=== PATIENT | male | born 1980 | race Caucasian/White ===

== ENCOUNTER 2020-04-10 11:53 | Inpatient (IN) | payer OTHER ==
--- NOTE | 2020-04-10 12:07 | BHS.RME ---
Substance Use & Tx History - Substance Use History Marijuana/Hashish Substance amount: 5 blunts Frequency of use: Daily Substance route: Smoking Date of Last Use: 04/09/20 Nicotine Substance amount: 12 ciggs Frequency of use: Daily Substance route: Smoking Date of Last Use: 04/10/20 Physical/Psych/Mental Status - Behavior General Behavior: Increased activity (restlessness, agitation) Eye Contact: Normal - Cooperativeness Cooperativeness: Cooperative - Thinking Thought Processes: Tight, Logical, Goal Directed - Physical Health Problems Is patient presently having any pain?: No Does patient presently have any injuries (include location): No Does patient currently have a fever: No Is patient : No CIWA Nausea/Vomitin-No Nausea/No Vomiting Muscle Tremors: 4-Moderate,w/Arms Extend Anxiety: 4-Mod. Anxious/Guarded Agitation: 3 Paroxysmal Sweats: 4-Forehead w/Sweat Beads Orientation: 0-Oriented Tacttile Disturbances: 0-None Auditory Disturbances: 0-None Visual Disturbances: 0-None Headache: 2-Mild CIWA-Ar Total Score: 17
[2020-04-10 13:51] VITALS: BMI 32.3
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
[2020-04-10] MEDS ORDERED: MENTHOL/PHENOL 1 EACH UD MM PRN (14:41)
[2020-04-10] MEDS ORDERED: ACETAMINOPHEN 325 MG TABLET (FP) PO PRN ×2 (14:41)
[2020-04-10] MEDS ORDERED: METHOCARBAMOL 500 MG TABLET PO PRN (14:41)
[2020-04-10] MEDS ORDERED: BISMUTH SUBSALICYLATE 524 MG/30 ML UD PO PRN (14:41)
[2020-04-10] MEDS ORDERED: IBUPROFEN 400 MG TABLET (FP) PO PRN (14:41)
[2020-04-10] MEDS ORDERED: MAGNESIUM HYDROX 2400MG/30ML ORAL SUSPENSION 30 ML CUP PO PRN (14:41)
[2020-04-10] MEDS ORDERED: MAGNESIUM CITRATE 300 ML BOTTLE PO PRN (14:41)
[2020-04-10] MEDS ORDERED: MAG HYDROX/AL HYDROX/SIMETH 30 ML UNIT-DOSE CUP PO PRN (14:41)
[2020-04-10] MEDS ORDERED: chlordiazePOXIDE HCL 25 MG CAPSULE PO PRN (14:44)
[2020-04-10] MEDS ORDERED: ONDANSETRON *ODT* 4 MG TABLET SL ONE (15:00)
[2020-04-10] MEDS: PRENATAL VITAMINS W/ FOLIC ACID TABLET (FP) PO SCH (15:34)
[2020-04-10] MEDS: NICOTINE 7 MG/24 HOURS TOPICAL PATCH TD SCH (15:37)
[2020-04-10] MEDS: NICOTINE POLACRILEX 2 MG GUM BUC PRN ×2 (15:37→22:33)
[2020-04-10] MEDS: chlordiazePOXIDE HCL 25 MG CAPSULE PO SCH ×2 (17:30→22:31)
[2020-04-10] MEDS: hydrOXYzine PAMOATE 25 MG CAPSULE (FP) PO SCH ×2 (17:30→22:30)
[2020-04-10 17:44] LABS: ALBUMIN 3.9 g/dl (3.4-5.0); BILIRUBIN,TOTAL 0.6 mg/dL (0.2-1); BLOOD UREA NITROGEN 11.7 mg/dL (7-18); CALCIUM 9.3 mg/dL (8.5-10.1); CREATININE 0.9 mg/dL (0.55-1.3); POTASSIUM 4.2 mmol/L (3.5-5.1); TOT PROT 7.2 g/dl (6.4-8.2)
[2020-04-10 17:46] LABS: HEMATOCRIT 44.4 % (35.4-49); HEMOGLOBIN 14.6 GM/dL (11.7-16.9); MCH 28.5 pg (25.7-33.7); MEAN CELL VOLUME 86.3 fl (80-96); MEAN PLT VOLUME 8.7 fl (7.5-11.1); PLATELET COUNT 339 K/MM3 (134-434); RBC 5.14 M/mm3 (4.00-5.60); RDW 13.8 % (11.9-15.9); WHITE BLOOD COUNT 11.1 K/mm3 (4.0-10.0)
[2020-04-10] MEDS: MELATONIN 5 MG TABLETS PO SCH (22:30)
[2020-04-10] MEDS: THIAMINE HCL 100 MG TABLET (FP) PO SCH (22:30)
[2020-04-11] MEDS: hydrOXYzine PAMOATE 25 MG CAPSULE (FP) PO SCH ×5 (05:30→22:13)
[2020-04-11] MEDS: chlordiazePOXIDE HCL 25 MG CAPSULE PO SCH ×4 (05:30→22:14)
--- NOTE | 2020-04-11 09:49 | PN ---
S CIWA - CIWA Score Nausea/Vomitin-Mild Nausea/No Vomiting Muscle Tremors: 3 Anxiety: 3 Agitation: 1-Slight > Activity Paroxysmal Sweats: 1-Minimal Palms Moist Orientation: 0-Oriented Tacttile Disturbances: 1-Very Mild Itch/Numbness Auditory Disturbances: 0-None Visual Disturbances: 2-Mild Sensitivity Headache: 0-None Present CIWA-Ar Total Score: 12 BHS Progress Note (SOAP) Subjective: 39 years old male admitted on 04/10/20 for alcohol withdrawal sx management treating with librium detox regiment ate breakfast feeling tired resting in bed limited conversation with staff prefers to stay in bed Objective: 04/11/20 09:49 Vital Signs - 24 hr 04/10/20 04/10/20 04/10/20 13:45 16:51 20:33 Temperature 98.4 F 97.3 F L 96.9 F L Pulse Rate 92 H 89 79 Respiratory 20 18 18 Rate Blood Pressure 122/80 147/94 129/81 O2 Sat by Pulse 100 Oximetry (%) 04/11/20 04/11/20 06:23 09:18 Temperature 97.8 F 97.5 F L Pulse Rate 72 70 Respiratory 18 18 Rate Blood Pressure 100/66 114/81 O2 Sat by Pulse 100 100 Oximetry (%) Laboratory Tests 04/10/20 04/10/20 04/10/20 14:00 14:00 14:00 WBC 11.1 H RBC 5.14 Hgb 14.6 Hct 44.4 MCV 86.3 MCH 28.5 MCHC 33.0 RDW 13.8 Plt Count 339 MPV 8.7 Sodium 139 Potassium 4.2 Chloride 107 Carbon Dioxide 25 Anion Gap 7 L BUN 11.7 Creatinine 0.9 Est GFR (CKD-EPI)AfAm 123.39 Est GFR (CKD-EPI)NonAf 106.46 Random Glucose 93 Calcium 9.3 Total Bilirubin 0.6 AST 22 ALT 30 Alkaline Phosphatase 98 Total Protein 7.2 Albumin 3.9 Syphilis Serology Non-reactive HIV Ag/Ab Combo Qual 04/10/20 14:00 WBC RBC Hgb Hct MCV MCH MCHC RDW Plt Count MPV Sodium Potassium Chloride Carbon Dioxide Anion Gap BUN Creatinine Est GFR (CKD-EPI)AfAm Est GFR (CKD-EPI)NonAf Random Glucose Calcium Total Bilirubin AST ALT Alkaline Phosphatase Total Protein Albumin Syphilis Serology HIV Ag/Ab Combo Qual Negative covid pending 04/11/20 09:49 Assessment: 04/11/20 09:49 alcohol withdrawal Plan: librium regiment
[2020-04-11] MEDS: PRENATAL VITAMINS W/ FOLIC ACID TABLET (FP) PO SCH (10:29)
[2020-04-11] MEDS: NICOTINE 7 MG/24 HOURS TOPICAL PATCH TD SCH (10:31)
[2020-04-11] MEDS: NICOTINE POLACRILEX 2 MG GUM BUC PRN ×2 (10:32→22:50)
--- NOTE | 2020-04-11 13:15 | EKG ---
Test Reason : Blood Pressure : / mmHG Vent. Rate : 065 BPM Atrial Rate : 065 BPM P-R Int : 156 ms QRS Dur : 098 ms QT Int : 404 ms P-R-T Axes : -01 070 045 degrees QTc Int : 420 ms NORMAL SINUS RHYTHM NORMAL ECG NO PREVIOUS ECGS AVAILABLE Confirmed by Tim Ireland ([id number]) on 04/11/2020 1:14:56 PM Referred By: Confirmed By:Tim Ireland
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
[2020-04-11] MEDS: QUEtiapine FUMARATE 100 MG TABLET (FP) PO SCH (22:13)
[2020-04-11] MEDS: THIAMINE HCL 100 MG TABLET (FP) PO SCH (22:13)
[2020-04-11] MEDS: MELATONIN 5 MG TABLETS PO SCH (22:14)
[2020-04-11] MEDS: DIVALPROEX SODIUM 500 MG TABLET E.C. PO SCH (22:14)
[2020-04-12] MEDS: hydrOXYzine PAMOATE 25 MG CAPSULE (FP) PO SCH ×5 (05:52→22:26)
[2020-04-12] MEDS: chlordiazePOXIDE HCL 25 MG CAPSULE PO SCH ×4 (05:52→22:26)
[2020-04-12] MEDS: PRENATAL VITAMINS W/ FOLIC ACID TABLET (FP) PO SCH (10:06)
[2020-04-12] MEDS: NICOTINE 7 MG/24 HOURS TOPICAL PATCH TD SCH (10:06)
[2020-04-12] MEDS: DIVALPROEX SODIUM 500 MG TABLET E.C. PO SCH ×2 (10:06→22:26)
--- NOTE | 2020-04-12 12:32 | PN ---
S CIWA - CIWA Score Nausea/Vomitin-Mild Nausea/No Vomiting Muscle Tremors: 1-None Visible, but [place] Anxiety: 1-Mildly Anxious Agitation: 1-Slight > Activity Paroxysmal Sweats: 1-Minimal Palms Moist Orientation: 0-Oriented Tacttile Disturbances: 1-Very Mild Itch/Numbness Auditory Disturbances: 0-None Visual Disturbances: 1-Very Mild Sensitivity Headache: 1-Very Mild CIWA-Ar Total Score: 8 BHS Progress Note (SOAP) Subjective: 39 years old male admitted on 04/10/20 for alcohol withdrawal sx management treating with librium detox regiment ate breakfast and lunch in room feeling tired resting in bed limited conversation with staff Objective: 04/12/20 12:32 Vital Signs - 24 hr 04/11/20 04/11/20 04/11/20 12:35 16:31 20:36 Temperature 97.5 F L 97.7 F 97.7 F Pulse Rate 62 78 82 Respiratory 16 18 18 Rate Blood Pressure 103/67 124/81 130/86 O2 Sat by Pulse 100 100 100 Oximetry (%) 04/12/20 04/12/20 06:14 08:35 Temperature 97.6 F 97.5 F L Pulse Rate 64 75 Respiratory 18 18 Rate Blood Pressure 106/69 96/66 O2 Sat by Pulse 99 Oximetry (%) Laboratory Tests 04/10/20 04/10/20 04/10/20 14:00 14:00 14:00 WBC 11.1 H RBC 5.14 Hgb 14.6 Hct 44.4 MCV 86.3 MCH 28.5 MCHC 33.0 RDW 13.8 Plt Count 339 MPV 8.7 Sodium 139 Potassium 4.2 Chloride 107 Carbon Dioxide 25 Anion Gap 7 L BUN 11.7 Creatinine 0.9 Est GFR (CKD-EPI)AfAm 123.39 Est GFR (CKD-EPI)NonAf 106.46 Random Glucose 93 Calcium 9.3 Total Bilirubin 0.6 AST 22 ALT 30 Alkaline Phosphatase 98 Total Protein 7.2 Albumin 3.9 Valproic Acid Syphilis Serology Non-reactive HIV Ag/Ab Combo Qual 04/10/20 04/12/20 14:00 07:45 WBC RBC Hgb Hct MCV MCH MCHC RDW Plt Count MPV Sodium Potassium Chloride Carbon Dioxide Anion Gap BUN Creatinine Est GFR (CKD-EPI)AfAm Est GFR (CKD-EPI)NonAf Random Glucose Calcium Total Bilirubin AST co ALT Alkaline Phosphatase Total Protein Albumin Valproic Acid 43.9 L Syphilis Serology HIV Ag/Ab Combo Qual Negative covid pending 04/12/20 12:33 Assessment: 04/12/20 12:33 alcohol withdrawal Plan: librium regiment
[2020-04-12] MEDS ORDERED: MASKS NR ONE (20:08)
[2020-04-12] MEDS: THIAMINE HCL 100 MG TABLET (FP) PO SCH (22:26)
[2020-04-12] MEDS: MELATONIN 5 MG TABLETS PO SCH (22:26)
[2020-04-12] MEDS: QUEtiapine FUMARATE 100 MG TABLET (FP) PO SCH (22:26)
[2020-04-12] MEDS: NICOTINE POLACRILEX 2 MG GUM BUC PRN (23:27)
[2020-04-13] MEDS ORDERED: chlordiazePOXIDE HCL 10 MG CAPSULE PO PRN
[2020-04-13] MEDS: hydrOXYzine PAMOATE 25 MG CAPSULE (FP) PO SCH ×5 (06:00→22:06)
[2020-04-13] MEDS: chlordiazePOXIDE HCL 10 MG CAPSULE PO SCH ×4 (06:00→22:06)
[2020-04-13] MEDS: DIVALPROEX SODIUM 500 MG TABLET E.C. PO SCH ×2 (10:21→22:06)
[2020-04-13] MEDS: PRENATAL VITAMINS W/ FOLIC ACID TABLET (FP) PO SCH (10:21)
[2020-04-13] MEDS: NICOTINE 7 MG/24 HOURS TOPICAL PATCH TD SCH (10:22)
--- NOTE | 2020-04-13 10:46 | PN ---
S CIWA - CIWA Score Nausea/Vomitin-No Nausea/No Vomiting Muscle Tremors: 2 Anxiety: 3 Agitation: 0-Normal Activity Paroxysmal Sweats: 1-Minimal Palms Moist Orientation: 0-Oriented Tacttile Disturbances: 0-None Auditory Disturbances: 0-None Visual Disturbances: 1-Very Mild Sensitivity Headache: 0-None Present CIWA-Ar Total Score: 7 BHS Progress Note (SOAP) Subjective: 39 years old male admitted on 04/10/20 for alcohol withdrawal sx management treating with librium detox regiment seen by psychiatrist resume seroquel and depakote feeling better today good hygiene shaved good eye contact Objective: 04/13/20 10:45 Vital Signs - 24 hr 04/12/20 04/12/20 04/12/20 12:45 16:29 20:46 Temperature 98.6 F 97.7 F 97.7 F Pulse Rate 79 86 100 H Respiratory 20 18 19 Rate Blood Pressure 124/69 136/86 127/84 O2 Sat by Pulse 97 100 Oximetry (%) 04/13/20 04/13/20 06:11 09:08 Temperature 97.7 F 97.5 F L Pulse Rate 89 73 Respiratory 18 18 Rate Blood Pressure 115/80 110/71 O2 Sat by Pulse 99 Oximetry (%) Laboratory Tests 04/10/20 04/10/20 04/10/20 14:00 14:00 14:00 WBC 11.1 H RBC 5.14 Hgb 14.6 Hct 44.4 MCV 86.3 MCH 28.5 MCHC 33.0 RDW 13.8 Plt Count 339 MPV 8.7 Sodium 139 Potassium 4.2 Chloride 107 Carbon Dioxide 25 Anion Gap 7 L BUN 11.7 Creatinine 0.9 Est GFR (CKD-EPI)AfAm 123.39 Est GFR (CKD-EPI)NonAf 106.46 Random Glucose 93 Calcium 9.3 Total Bilirubin 0.6 AST 22 ALT 30 Alkaline Phosphatase 98 Total Protein 7.2 Albumin 3.9 Valproic Acid Syphilis Serology Non-reactive COVID-19 ([facility]) HIV Ag/Ab Combo Qual 04/10/20 04/10/20 04/12/20 14:00 15:33 07:45 WBC RBC Hgb Hct MCV MCH MCHC RDW Plt Count MPV Sodium Potassium Chloride Carbon Dioxide Anion Gap BUN Creatinine Est GFR (CKD-EPI)AfAm Est GFR (CKD-EPI)NonAf Random Glucose Calcium Total Bilirubin AST ALT Alkaline Phosphatase Total Protein Albumin Valproic Acid 43.9 L Syphilis Serology COVID-19 ([facility]) Not detected HIV Ag/Ab Combo Qual Negative lab noted Assessment: 04/13/20 10:46 alcohol withdrawal Plan: librium regiment
[2020-04-13] MEDS: QUEtiapine FUMARATE 100 MG TABLET (FP) PO SCH (22:06)
[2020-04-13] MEDS: THIAMINE HCL 100 MG TABLET (FP) PO SCH (22:06)
[2020-04-13] MEDS: MELATONIN 5 MG TABLETS PO SCH (22:06)
[2020-04-14] MEDS: chlordiazePOXIDE HCL 10 MG CAPSULE PO SCH ×2 (06:08→18:23)
[2020-04-14] MEDS: hydrOXYzine PAMOATE 25 MG CAPSULE (FP) PO SCH ×5 (06:08→22:07)
[2020-04-14] MEDS: PRENATAL VITAMINS W/ FOLIC ACID TABLET (FP) PO SCH (10:54)
[2020-04-14] MEDS: NICOTINE 7 MG/24 HOURS TOPICAL PATCH TD SCH (10:54)
[2020-04-14] MEDS: NICOTINE POLACRILEX 2 MG GUM BUC PRN (10:54)
[2020-04-14] MEDS: DIVALPROEX SODIUM 500 MG TABLET E.C. PO SCH ×2 (10:54→22:07)
--- NOTE | 2020-04-14 11:24 | PN ---
S CIWA - CIWA Score Nausea/Vomitin-No Nausea/No Vomiting Muscle Tremors: None Anxiety: 1-Mildly Anxious Agitation: 0-Normal Activity Paroxysmal Sweats: No Perspiration Orientation: 1-Uncertain about Date Tacttile Disturbances: 0-None Auditory Disturbances: 2-Mild Harshness/Frighten Visual Disturbances: 1-Very Mild Sensitivity Headache: 1-Very Mild CIWA-Ar Total Score: 6 BHS Progress Note (SOAP) Subjective: Patient has no complaint at time of review. Objective: 04/14/20 11:24 Patient is being managed for alcohol detox and schizophrenia. He is lying down calmly and answeing all questions at time of review. Complaint of being cold at time of review and was encouraged to use his bkanket since he is in a shared room and room mates isn't complaining of cold. Assessment: Alcohol withdrawal and schizophrenia on treatment 04/14/20 11:28 Plan: Continue librium, psych meds and other supporting meds as recommended.
[2020-04-14] MEDS: THIAMINE HCL 100 MG TABLET (FP) PO SCH (22:07)
[2020-04-14] MEDS: MELATONIN 5 MG TABLETS PO SCH (22:07)
[2020-04-14] MEDS: QUEtiapine FUMARATE 100 MG TABLET (FP) PO SCH (22:07)
[2020-04-15] MEDS ORDERED: chlordiazePOXIDE HCL 10 MG CAPSULE PO ONE (05:00)
[2020-04-15] MEDS: hydrOXYzine PAMOATE 25 MG CAPSULE (FP) PO SCH ×3 (06:20→14:40)
[2020-04-15] MEDS: DIVALPROEX SODIUM 500 MG TABLET E.C. PO SCH (10:29)
[2020-04-15] MEDS: NICOTINE 7 MG/24 HOURS TOPICAL PATCH TD SCH (10:29)
[2020-04-15] MEDS: PRENATAL VITAMINS W/ FOLIC ACID TABLET (FP) PO SCH (10:29)
[2020-04-15] MEDS: NICOTINE POLACRILEX 2 MG GUM BUC PRN (10:29)
[2020-04-15 14:07] VITALS: BP 132/88; PULSE 97; TEMP 97.3
--- NOTE | 2020-04-15 14:07 | DS ---
[facility] Detox Discharge Summary Admission Date: 04/10/20 Discharge Date: 04/15/20 - History Present History: Alcohol Dependence, Cannabis Dependence, Cocaine Dependence Additional Comments: [facility]. Patient A & O X 3, observed ambulating on Detox Unit unassisted prior to time of discharge. Patient denied current withdrawal / detox symptoms when assessed prior to time of Discharge from Detox Unit. Patient was discharged from Detox Unit to be taken over to Rehab Unit in stable medical condition. Pertinent Past History: Depression, Schizophrenia, Insomnia, Nicotine Dependence. - Physical Exam Results Vital Signs: Vital Signs Temperature 97.7 F 04/15/20 08:59 Pulse Rate 81 04/15/20 08:59 Respiratory Rate 20 04/15/20 08:59 Blood Pressure 114/74 04/15/20 08:59 O2 Sat by Pulse Oximetry (%) 99 04/15/20 08:59 Pertinent Admission Physical Exam Findings: WITHDRAWAL SYMPTOMS. Laboratory Tests 04/10/20 04/10/20 04/10/20 14:00 14:00 14:00 WBC 11.1 H RBC 5.14 Hgb 14.6 Hct 44.4 MCV 86.3 MCH 28.5 MCHC 33.0 RDW 13.8 Plt Count 339 MPV 8.7 Sodium 139 Potassium 4.2 Chloride 107 Carbon Dioxide 25 Anion Gap 7 L BUN 11.7 Creatinine 0.9 Est GFR (CKD-EPI)AfAm 123.39 Est GFR (CKD-EPI)NonAf 106.46 Random Glucose 93 Calcium 9.3 Total Bilirubin 0.6 AST 22 ALT 30 Alkaline Phosphatase 98 Total Protein 7.2 Albumin 3.9 Valproic Acid Syphilis Serology Non-reactive COVID-19 ([facility]) HIV Ag/Ab Combo Qual 04/10/20 04/10/20 04/12/20 14:00 15:33 07:45 WBC RBC Hgb Hct MCV MCH MCHC RDW Plt Count MPV Sodium Potassium Chloride Carbon Dioxide Anion Gap BUN Creatinine Est GFR (CKD-EPI)AfAm Est GFR (CKD-EPI)NonAf Random Glucose Calcium Total Bilirubin AST ALT Alkaline Phosphatase Total Protein Albumin Valproic Acid 43.9 L Syphilis Serology COVID-19 ([facility]) Not detected HIV Ag/Ab Combo Qual Negative Lab Results noted. - Treatment Hospital Course: Detox Protocol Followed, Detoxed Safely, Responded well, Discharged Condition Good, Rehab Referral Accepted Patient has Accepted a Rehab Referral to: [facility] ([place], [place]) - Medication Discharge Medications: Ambulatory Orders Divalproex [Depakote -] 500 mg PO TID 04/10/20 Quetiapine Fumarate [Seroquel -] 200 mg PO HS 04/10/20 traZODone HCL [Trazodone HCl] 150 mg PO HS 04/13/20 - Diagnosis (1) Alcohol dependence Current Visit: Yes Status: Chronic Qualifiers: Substance use status: in withdrawal Complication of substance-induced condition: uncomplicated Qualified Code(s): F10.230 - Alcohol dependence with withdrawal, uncomplicated (2) Cannabis dependence Current Visit: Yes Status: Chronic (3) Cocaine dependence Current Visit: Yes Status: Chronic Qualifiers: Substance use status: in withdrawal Qualified Code(s): F14.23 - Cocaine dependence with withdrawal (4) Insomnia Current Visit: Yes Status: Chronic Qualifiers: Insomnia type: unspecified Qualified Code(s): G47.00 - Insomnia, unspecified (5) Nicotine dependence Current Visit: Yes Status: Chronic Qualifiers: Nicotine product type: cigarettes Substance use status: uncomplicated Qualified Code(s): F17.210 - Nicotine dependence, cigarettes, uncomplicated (6) Non-compliance Current Visit: Yes Status: Chronic (7) Schizophrenia Current Visit: Yes Status: Chronic Qualifiers: Schizophrenia type: unspecified Qualified Code(s): F20.9 - Schizophrenia, unspecified (8) Substance induced mood disorder Current Visit: Yes Status: Chronic - AMA Did Patient Leave Against Medical Advice: No
== END 2020-04-15 17:18 | disposition other institution (70) | DRG 774 ==
LOC: YASAS 11:53 → Y3N 14:21
PROVIDERS: ADMIT Allergy & Immunology; ATTEND Allergy & Immunology
PROC: HZ2ZZZZ Detoxification Services for Substance Abuse Treatment (ICD-10-PCS; principal; 2020-04-10)
DX: F10.230 Alcohol dependence with withdrawal, uncomplicated (principal); F14.20 Cocaine dependence, uncomplicated; F12.20 Cannabis dependence, uncomplicated; F17.210 Nicotine dependence, cigarettes, uncomplicated; F20.9 Schizophrenia, unspecified; F19.24 Other psychoactive substance dependence with psychoactive substance-induced mood disorder; F32.9 Major depressive disorder, single episode, unspecified; G47.00 Insomnia, unspecified; Z91.5 Personal history of self-harm; Z91.19 Patient's noncompliance with other medical treatment and regimen; Z56.0 Unemployment, unspecified; Z59.0 Homelessness
CPT/HCPCS: 36415; 80053; 80164; 85027; 86780; 87389; 93005; 93010; U0003

== ENCOUNTER 2020-04-15 17:22 | Inpatient (IN) | payer OTHER ==
--- NOTE | 2020-04-15 14:14 | HP ---
[facility] Rehab Assess/Revision - Admission History Admitted to Rehab from: [facility] Date of Admission to Rehab: 04/15/2020 - Vital signs Vital Signs: Noted; Stable. - Findings Detox History & Physical reviewed: Yes Concur with findings: Yes Comments/Additional Findings: Patient's Medical / Medication History reviewed prior to Discharge from Detox Unit. Patient was Discharged from Detox unit to be taken over to Rehab unit in stable medical condition. Inpatient Rehab Admission - Rehab Decision to Admit Inpatient rehab admission?: Yes - Initial Determination Are CD services needed?: Yes Free of communicable disease: Yes Not in need of hospitalization: Yes - Rehab Admission Criteria Previous failed treatment: Yes Poor recovery environment: Yes Comorbidities: Yes Lacks judgement: No Patient is meeting Inpatient Rehab admission criteria:: Yes
[~2020-04-15 17:22] MED LIST: ACETAMINOPHEN 325 MG TABLET (FP) PO PRN; LOPERAMIDE HCL 2 MG CAPSULE PO PRN; MAG HYDROX/AL HYDROX/SIMETH 30 ML UNIT-DOSE CUP PO PRN; MAGNESIUM CITRATE 300 ML BOTTLE PO PRN; MAGNESIUM HYDROX 2400MG/30ML ORAL SUSPENSION 30 ML CUP PO PRN; MENTHOL/PHENOL 1 EACH UD MM PRN; NICOTINE POLACRILEX 2 MG GUM BUC PRN; P-EPHED 60MG/TRIPROLIDI 2.5MG TABLET PO PRN; guaiFENesin 200 MG/10 ML 10 ML UNIT-DOSE CUPS PO PRN
[2020-04-15] MEDS: hydrOXYzine PAMOATE 25 MG CAPSULE (FP) PO SCH ×2 (18:28→21:20)
[2020-04-15] MEDS: IBUPROFEN 400 MG TABLET (FP) PO PRN (18:28)
[2020-04-15] MEDS: THIAMINE HCL 100 MG TABLET (FP) PO SCH (21:20)
[2020-04-15] MEDS: MELATONIN 5 MG TABLETS PO SCH (21:20)
[2020-04-16] MEDS: IBUPROFEN 400 MG TABLET (FP) PO PRN (06:02)
[2020-04-16] MEDS: hydrOXYzine PAMOATE 25 MG CAPSULE (FP) PO SCH ×5 (06:02→21:29)
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
[2020-04-16] MEDS: DIVALPROEX SODIUM 500 MG TABLET E.C. PO SCH ×2 (09:54→21:29)
[2020-04-16] MEDS: PRENATAL VITAMINS W/ FOLIC ACID TABLET (FP) PO SCH (09:54)
[2020-04-16] MEDS: NICOTINE 7 MG/24 HOURS TOPICAL PATCH TD SCH (09:57)
[2020-04-16] MEDS ORDERED: PT OWN MED DRAWER 7, Y5N ONE ×2 (17:33→19:11)
[2020-04-16] MEDS: MELATONIN 5 MG TABLETS PO SCH (21:29)
[2020-04-16] MEDS: THIAMINE HCL 100 MG TABLET (FP) PO SCH (21:29)
[2020-04-16] MEDS ORDERED: QUEtiapine FUMARATE 100 MG TABLET (FP) PO SCH (22:00)
[2020-04-17] MEDS: hydrOXYzine PAMOATE 25 MG CAPSULE (FP) PO SCH ×2 (07:08→10:10)
[2020-04-17 07:28] VITALS: BP 125/82; PULSE 76; TEMP 97.3
[2020-04-17] MEDS ORDERED: PT OWN MED DRAWER 7, Y5N ONE (08:51)
[2020-04-17] MEDS: PRENATAL VITAMINS W/ FOLIC ACID TABLET (FP) PO SCH (10:09)
[2020-04-17] MEDS: NICOTINE 7 MG/24 HOURS TOPICAL PATCH TD SCH (10:09)
[2020-04-17] MEDS: DIVALPROEX SODIUM 500 MG TABLET E.C. PO SCH (10:09)
--- NOTE | 2020-04-17 11:27 | PN ---
[facility] Progress Note Note: Patient is scheduled for discharge tomorrow. Scripts for 30 days supply of medications(Seroquel 100 mg/hs, Depakote 500 mg/bid) will be electronically transmittedd to [facility], [address] [place] [id number]
[2020-04-17] MEDS ORDERED: hydrOXYzine PAMOATE 25 MG CAPSULE (FP) PO PRN (12:00)
--- NOTE | 2020-04-17 15:24 | PN ---
[facility] Progress Note Note: Patient informed RN on duty, Misbah, that he has been unable to sleep due to thought about childhood and would like to speak with Psychiatrist. Consult ordered. Vital Signs Temperature 97.3 F L 04/17/20 07:27 Pulse Rate 76 04/17/20 07:27 Respiratory Rate 18 04/17/20 07:27 Blood Pressure 125/82 04/17/20 07:27 O2 Sat by Pulse Oximetry (%) 97 04/17/20 14:02
--- NOTE | 2020-04-17 16:23 | PN ---
Psychiatric Progress Note Vital Signs: Vital Signs Period Temp Pulse Resp BP Sys/Yadav Pulse Ox Last 24 Hr 97.3 F 76 18 125/82 97-98 Date of Session: 04/17/20 Chief Complaint:: " I am hearing voices. I think that I am in a reality show." HPI: Discharged from the detoxification unit on 04/16/[address] for rehabilitation. Patient is a 39 y/o male with schizophrenia. Non- adherent to [facility] care in the community. VIKY issues : alcohol, nicotine. Mr Phillips is anxious, frightened by continuous auditory hallucinations and feelings of derealization (I think that I am in a TV show). ROS: No somatic complaints. Patient is alert and fully oriented. Ambulatory. Current Medications: Active Medications Generic Name Dose Route Start Last Admin Trade Name Freq PRN Reason Stop Dose Admin Acetaminophen 650 mg 04/15/20 14:11 Tylenol - PO Q4H PRN FEVER Al Hydroxide/Mg Hydroxide 30 ml 04/15/20 14:11 Mylanta Oral Suspension - PO Q6H PRN DYSPEPSIA Divalproex Sodium 500 mg 04/16/20 10:00 04/17/20 10:09 Depakote - PO 500 mg BID LEIGH ANN Administration Eucalyptus/Menthol/Phenol/Sorbitol 1 each 04/15/20 14:11 Cepastat Lozenge - MM Q4H PRN SORE THROAT Guaifenesin 10 ml 04/15/20 14:11 Robitussin - PO Q6H PRN COUGH Hydroxyzine Pamoate 25 mg 04/17/20 12:00 Vistaril - PO Q4HWA PRN ANXIETY Ibuprofen 400 mg 04/15/20 14:11 04/16/20 06:02 Motrin - PO 400 mg Q6H PRN Administration Pain Level 4-6 Loperamide HCl 4 mg 04/15/20 14:11 Imodium - PO Q6H PRN DIARRHEA Magnesium Citrate 300 ml 04/15/20 14:11 Citroma - PO Q48H PRN CONSTIPATION Magnesium Hydroxide 30 ml 04/15/20 14:11 04/15/20 21:20 Milk Of Magnesia - PO 30 ml DAILY PRN Administration CONSTIPATION Melatonin 5 mg 04/15/20 22:00 04/16/20 21:29 Melatonin PO 5 mg HS LEIGH ANN Administration Nicotine 7 mg 04/16/20 10:00 04/17/20 10:09 Nicoderm Patch - TD Not Given DAILY LEIGH ANN Nicotine Polacrilex 2 mg 04/15/20 14:11 04/16/20 14:39 Nicorette Gum - BUC 2 mg Q2H PRN Administration NICOTINE REPLACEMENT RX Multivit/Folic Acid/Iron 1 tab 04/16/20 10:00 04/17/20 10:09 Vitamins (Sjr) - PO 1 tab DAILY LEIGH ANN Administration Pseudoephedrine/Triprolidine 1 combo 04/15/20 14:11 Actifed - PO TID PRN NASAL CONGESTION Quetiapine Fumarate 100 mg 04/16/20 22:00 04/16/20 21:29 Seroquel - PO 100 mg HS LEIGH ANN Administration Thiamine HCl 100 mg 04/15/20 22:00 04/16/20 21:29 Vitamin B1 - PO 100 mg HS LEIGH ANN Administration Medication(s) Change(s): Medications : seroquel 100 mg po hs + depakote 500 mg po bid (to be titrated). Current Side Effect: No Lab tests ordered: No Lab tests reviewed: Yes Provider note:: Chart reviewed. Met with the patient, at his request. Mr Rader reports chronic insomnia, auditory hallucinations (voices telling him to do different things such as screaming, running, yelling and hitting people). He also invested in the belief that he is participating in a reality show and he has expressed the concern that he is " losing " his mind. Patient declares that he " does not feel comfortable " on a rehabilitation unit. Patient is acutely psychotic. He needs a higher level of psychiatric care. Site Interpreter contacted the personnel at the [facility] emergency department (psychiatric section). Spoke to TANIKA Lo at [phone]. Case endorsed. Patient will be transported to [facility] ED (at his request) via EMS/[place] [employer]. Discussed with [facility] staff (medical nurse practitioner + staff nurse on duty). Total face to face time:: 60 Mental Status Exam - Mental Status Exam Alert and Oriented to: Time, Place, Person Cognitive Function: Good Patient Appearance: Unkempt, Disheveled Mood: Fearful, Nervous, Withdrawn Affect: Mood Congruent, Blunted Patient Behavior: Fatigued, Cooperative Speech Pattern: Clear Voice Loudness: Normal Thought Process: Disorganized Thought Disorder: Present, Being Controlled (by a computer chip inserted in his brain), Bizarre, Delusional Hallucinations: Auditory, Command Suicidal Ideation: Denies Homicidal Ideation: Denies Insight/Judgement: Poor Sleep: Poorly, Difficulty falling asleep Appetite: Good Gait/Station: Normal Psychiatric Treatment Plan - Problem List (1) Psychosis Comment: .Acutely psychotic. (2) Schizophrenia Qualifiers: Schizophrenia type: unspecified Qualified Code(s): F20.9 - Schizophrenia, unspecified Comment: . (3) Alcohol dependence Qualifiers: Substance use status: in withdrawal Complication of substance-induced condition: uncomplicated Qualified Code(s): F10.230 - Alcohol dependence with withdrawal, uncomplicated Comment: . (4) Nicotine dependence Qualifiers: Nicotine product type: cigarettes Substance use status: uncomplicated Qualified Code(s): F17.210 - Nicotine dependence, cigarettes, uncomplicated Comment: . (5) Insomnia Qualifiers: Insomnia type: unspecified Qualified Code(s): G47.00 - Insomnia, unspecified Comment: .
--- NOTE | 2020-04-17 18:28 | PN ---
[facility] Progress Note Note: Psychiatry Attending's note : Patient started to escalate. Complete disregard for unit rules. " Why isn't the ambulance here yet ? " Left unit on his own. Found by designer/writer. Walking in the corridors. Situation of emergency. Constant Observation initiated. Until emergency transfer to [facility]. Discussed with nurse on duty ([facility]). Discussed with medical attending, Dr Santo (in person).
== END 2020-04-17 18:45 | DRG 772 ==
LOC: YASAS 17:22 → Y3E 17:23
PROVIDERS: ADMIT Allergy & Immunology; ATTEND Allergy & Immunology
PROC: HZ42ZZZ Group Counseling for Substance Abuse Treatment, Cognitive-Behavioral (ICD-10-PCS; principal; 2020-04-15)
DX: F10.20 Alcohol dependence, uncomplicated (principal); F17.210 Nicotine dependence, cigarettes, uncomplicated; F20.9 Schizophrenia, unspecified; F29 Unspecified psychosis not due to a substance or known physiological condition; G47.00 Insomnia, unspecified; Z56.0 Unemployment, unspecified; Z59.0 Homelessness

== ENCOUNTER 2021-03-29 18:27 | Inpatient (IN) | payer OTHER ==
[2021-03-29 20:02] VITALS: BMI 33.5
[2021-03-29] MEDS ORDERED: ONDANSETRON *ODT* 4 MG TABLET SL PRN (20:28)
[2021-03-29] MEDS ORDERED: IBUPROFEN 400 MG TABLET (FP) PO PRN (20:28)
[2021-03-29] MEDS ORDERED: MAGNESIUM CITRATE 300 ML BOTTLE PO PRN (20:28)
[2021-03-29] MEDS ORDERED: NICOTINE POLACRILEX 2 MG GUM BUC PRN (20:28)
[2021-03-29] MEDS ORDERED: MAG HYDROX/AL HYDROX/SIMETH 30 ML UNIT-DOSE CUP PO PRN (20:28)
[2021-03-29] MEDS ORDERED: METHOCARBAMOL 500 MG TABLET PO PRN (20:28)
[2021-03-29] MEDS ORDERED: BISMUTH SUBSALICYLATE 524 MG/30 ML PO PRN (20:28)
[2021-03-29] MEDS ORDERED: MAGNESIUM HYDROX 2400MG/30ML ORAL SUSPENSION 30 ML CUP PO PRN (20:28)
[2021-03-29] MEDS ORDERED: ACETAMINOPHEN 325 MG TABLET (FP) PO PRN ×2 (20:28)
[2021-03-29] MEDS ORDERED: METHADONE HCL 10 MG TABLET (FOR DETOX USE ONLY) PO ONE (20:28)
[2021-03-29] MEDS ORDERED: cloNIDine HCL 0.1 MG TABLET PO PRN (20:28)
[2021-03-29] MEDS ORDERED: MENTHOL/PHENOL 1 EACH UD MM PRN (20:28)
[2021-03-29] MEDS ORDERED: METHADONE HCL 10 MG TABLET (FOR DETOX USE ONLY) ONE (21:40)
[2021-03-29] MEDS ORDERED: MELATONIN 5 MG TABLETS PO SCH (22:00)
[2021-03-29] MEDS ORDERED: THIAMINE HCL 100 MG TABLET (FP) PO SCH (22:00)
[2021-03-30 09:10] VITALS: BP 113/76; PULSE 73; TEMP 96.8
[2021-03-30] MEDS ORDERED: METHADONE HCL 5 MG TABLET (FOR DETOX USE ONLY) ONE (09:27)
[2021-03-30] MEDS ORDERED: METHADONE HCL 10 MG TABLET (FOR DETOX USE ONLY) ONE (09:27)
[2021-03-30] MEDS ORDERED: NICOTINE 21 MG/24 HOURS TOPICAL PATCH TD SCH (10:00)
[2021-03-30] MEDS ORDERED: PRENATAL VITAMINS W/ FOLIC ACID TABLET (FP) PO SCH (10:00)
[2021-03-30] MEDS ORDERED: METHADONE (DETOX) 20 MG, METHADONE (DETOX) 5 MG PO ONE (10:00)
[2021-03-30] MEDS ORDERED: DIVALPROEX SODIUM 500 MG TABLET E.C. PO SCH (10:15)
[2021-03-30 13:08] LABS: HEMATOCRIT 41.1 % (35.4-49); HEMOGLOBIN 13.6 GM/dL (11.7-16.9); MCH 28.2 pg (25.7-33.7); MCHC 33.2 g/dl (32.0-35.9); MEAN CELL VOLUME 85.1 fl (80-96); MEAN PLT VOLUME 7.7 fl (7.5-11.1); PLATELET COUNT 317 10^3/uL (134-434); RBC 4.83 M/mm3 (4.00-5.60); WHITE BLOOD COUNT 8.6 K/mm3 (4.0-10.0)
[2021-03-30 13:39] LABS: ALBUMIN 3.2 g/dl (3.4-5.0); BLOOD UREA NITROGEN 9.4 mg/dL (7-18); CALCIUM 8.9 mg/dL (8.5-10.1)
[2021-03-30 13:42] LABS: CREATININE 0.6 mg/dL (0.55-1.3)
[2021-03-30 13:43] LABS: BILIRUBIN,TOTAL 0.4 mg/dL (0.2-1); TOT PROT 6.4 g/dl (6.4-8.2)
[2021-03-30] MEDS ORDERED: QUEtiapine FUMARATE 200 MG TABLET PO SCH (22:00)
[2021-03-31] MEDS ORDERED: FLUoxetine HCL 20 MG CAPSULE PO SCH (10:00)
[2021-03-31] MEDS ORDERED: METHADONE HCL 10 MG TABLET (FOR DETOX USE ONLY) PO ONE (10:00)
[2021-04-01] MEDS ORDERED: METHADONE (DETOX) 10 MG, METHADONE (DETOX) 5 MG PO ONE (10:00)
[2021-04-02] MEDS ORDERED: METHADONE HCL 10 MG TABLET (FOR DETOX USE ONLY) PO ONE (10:00)
[2021-04-03] MEDS ORDERED: METHADONE HCL 5 MG TABLET (FOR DETOX USE ONLY) PO ONE (06:00)
== END 2021-03-30 12:22 | disposition left against medical advice (07) | DRG 770 ==
LOC: YASAS 18:27 → Y3N 23:14
PROVIDERS: ADMIT Allergy & Immunology; ATTEND Allergy & Immunology
PROC: HZ2ZZZZ Detoxification Services for Substance Abuse Treatment (ICD-10-PCS; principal; 2021-03-29)
DX: F11.23 Opioid dependence with withdrawal (principal); F13.20 Sedative, hypnotic or anxiolytic dependence, uncomplicated; F14.20 Cocaine dependence, uncomplicated; F12.20 Cannabis dependence, uncomplicated; F17.210 Nicotine dependence, cigarettes, uncomplicated; F20.9 Schizophrenia, unspecified; F19.24 Other psychoactive substance dependence with psychoactive substance-induced mood disorder; F29 Unspecified psychosis not due to a substance or known physiological condition; Z62.810 Personal history of physical and sexual abuse in childhood; Z56.0 Unemployment, unspecified; Z59.0 Homelessness
CPT/HCPCS: 36415; 80053; 85027; 86780; 93005; 93010; C9803; U0003; U0005

== ENCOUNTER 2021-06-27 14:27 | Inpatient (IN) | payer OTHER ==
[2021-06-27 15:37] VITALS: BMI 27.1
[2021-06-27] MEDS ORDERED: MAG HYDROX/AL HYDROX/SIMETH 30 ML UNIT-DOSE CUP PO PRN (18:45)
[2021-06-27] MEDS ORDERED: ONDANSETRON *ODT* 4 MG TABLET SL PRN (18:45)
[2021-06-27] MEDS ORDERED: cloNIDine HCL 0.1 MG TABLET PO PRN (18:45)
[2021-06-27] MEDS ORDERED: MAGNESIUM HYDROX 2400MG/30ML ORAL SUSPENSION 30 ML CUP PO PRN (18:45)
[2021-06-27] MEDS ORDERED: METHOCARBAMOL 500 MG TABLET PO PRN (18:45)
[2021-06-27] MEDS ORDERED: ACETAMINOPHEN 325 MG TABLET (FP) PO PRN ×2 (18:45)
[2021-06-27] MEDS ORDERED: NALOXONE (NARCAN) HCL 4 MG/0.1 ML SPRAY NS PRN (18:45)
[2021-06-27] MEDS ORDERED: BISMUTH SUBSALICYLATE 524 MG/30 ML PO PRN (18:45)
[2021-06-27] MEDS ORDERED: MAGNESIUM CITRATE 300 ML BOTTLE PO PRN (18:45)
[2021-06-27] MEDS ORDERED: NICOTINE 10 MG CARTRIDGE (INHALER) IH PRN (18:45)
[2021-06-27] MEDS ORDERED: MENTHOL/PHENOL 1 EACH UD MM PRN (18:45)
[2021-06-27] MEDS ORDERED: IBUPROFEN 400 MG TABLET (FP) PO PRN (18:45)
[2021-06-27] MEDS ORDERED: methaDONE HCL 10 MG TABLET (FOR DETOX USE ONLY) PO ONE (18:45)
[2021-06-27] MEDS ORDERED: THIAMINE HCL 100 MG TABLET (FP) PO SCH (22:00)
[2021-06-27] MEDS ORDERED: MELATONIN 5 MG TABLETS PO SCH (22:00)
[2021-06-27] MEDS: NICOTINE 21 MG/24 HOURS TOPICAL PATCH TD SCH (22:45)
[2021-06-27] MEDS: hydrOXYzine PAMOATE 25 MG CAPSULE (FP) PO SCH (22:45)
[2021-06-28] MEDS: hydrOXYzine PAMOATE 25 MG CAPSULE (FP) PO SCH ×2 (06:25→10:20)
[2021-06-28 09:32] VITALS: BP 126/65; PULSE 66; TEMP 98.8
[2021-06-28] MEDS ORDERED: methaDONE HCL 10 MG TABLET (FOR DETOX USE ONLY) ONE (09:55)
[2021-06-28] MEDS: NICOTINE 21 MG/24 HOURS TOPICAL PATCH TD SCH (10:21)
[2021-06-28 10:23] LABS: HEMATOCRIT 41.1 % (35.4-49); HEMOGLOBIN 13.9 GM/dL (11.7-16.9); MCH 28.2 pg (25.7-33.7); MCHC 33.7 g/dl (32.0-35.9); MEAN CELL VOLUME 83.5 fl (80-96); MEAN PLT VOLUME 7.7 fl (7.5-11.1); PLATELET COUNT 428 10^3/uL (134-434); RBC 4.92 M/mm3 (4.00-5.60); RDW 14.9 % (11.9-15.9)
[2021-06-28 11:20] LABS: CALCIUM 9.1 mg/dL (8.5-10.1)
[2021-06-28 11:21] LABS: ALBUMIN 3.1 g/dl (3.4-5.0); BLOOD UREA NITROGEN 10.3 mg/dL (7-18)
[2021-06-28 11:24] LABS: CREATININE 0.7 mg/dL (0.55-1.3)
[2021-06-28 11:26] LABS: BILIRUBIN,TOTAL 0.8 mg/dL (0.2-1); TOT PROT 6.8 g/dl (6.4-8.2)
[2021-06-28] MEDS ORDERED: hydrOXYzine PAMOATE 25 MG CAPSULE (FP) PO PRN (13:06)
[2021-06-29] MEDS ORDERED: methaDONE HCL 10 MG TABLET (FOR DETOX USE ONLY) PO ONE (10:00)
[2021-07-01] MEDS ORDERED: methaDONE HCL 10 MG TABLET (FOR DETOX USE ONLY) PO ONE (10:00)
== END 2021-06-28 14:29 | disposition left against medical advice (07) | DRG 770 ==
LOC: YASAS 14:27 → Y3N 17:07
PROVIDERS: ADMIT Allergy & Immunology; ATTEND Allergy & Immunology
PROC: HZ2ZZZZ Detoxification Services for Substance Abuse Treatment (ICD-10-PCS; principal; 2021-06-27)
DX: F11.23 Opioid dependence with withdrawal (principal); F14.20 Cocaine dependence, uncomplicated; F13.20 Sedative, hypnotic or anxiolytic dependence, uncomplicated; F16.20 Hallucinogen dependence, uncomplicated; F12.20 Cannabis dependence, uncomplicated; F17.210 Nicotine dependence, cigarettes, uncomplicated; F20.9 Schizophrenia, unspecified; F19.24 Other psychoactive substance dependence with psychoactive substance-induced mood disorder; F29 Unspecified psychosis not due to a substance or known physiological condition; L73.9 Follicular disorder, unspecified; Z59.00 Homelessness unspecified
CPT/HCPCS: 36415; 80053; 85027; 86780; C9803; J0735; U0003; U0005

== ENCOUNTER 2024-10-23 13:24 | Inpatient (IN) | payer OTHER ==
[2024-10-23 14:01] VITALS: BMI 29.0
[2024-10-23] MEDS ORDERED: IBUPROFEN 400 MG TABLET (FP) PO PRN (14:15)
[2024-10-23] MEDS ORDERED: BISMUTH SUBSALICYLATE 524 MG/30 ML PO PRN (14:15)
[2024-10-23] MEDS ORDERED: BENZOCAINE/MENTHOL (CHLORASEPTIC ) LOZENGE MM PRN (14:15)
[2024-10-23] MEDS ORDERED: DICYCLOMINE HCL 10 MG CAPSULE PO PRN (14:15)
[2024-10-23] MEDS ORDERED: NALOXONE (NARCAN) HCL 4 MG/0.1 ML SPRAY NS PRN (14:15)
[2024-10-23] MEDS ORDERED: MAG HYDROX/AL HYDROX/SIMETH 30 ML UNIT-DOSE CUP PO PRN (14:15)
[2024-10-23] MEDS ORDERED: NICOTINE POLACRILEX 2 MG LOZENGE BC PRN (14:15)
[2024-10-23] MEDS ORDERED: guaiFENesin 600 MG TABLET.ER (FP) PO PRN (14:15)
[2024-10-23] MEDS ORDERED: POLYETHYLENE GLYCOL (HEALTHYLAX) 3350 17 GM PACKET PO PRN (14:15)
[2024-10-23] MEDS ORDERED: MAGNESIUM HYDROX 2400MG/30ML ORAL SUSPENSION 30 ML CUP PO PRN (14:15)
[2024-10-23] MEDS ORDERED: BENZONATATE 200 MG CAPSULE PO PRN (14:15)
[2024-10-23] MEDS ORDERED: LOPERAMIDE HCL 2 MG CAPSULE PO PRN (14:15)
[2024-10-23] MEDS ORDERED: ACETAMINOPHEN 325 MG TABLET (FP) PO PRN (14:15)
[2024-10-23] MEDS ORDERED: DOCUSATE SODIUM 100 MG CAPSULE (FP) PO PRN (14:15)
[2024-10-23] MEDS ORDERED: NICOTINE POLACRILEX 2 MG GUM BUC PRN (14:15)
[2024-10-23] MEDS ORDERED: IBUPROFEN 600 MG TABLET (FP) PO PRN (14:15)
[2024-10-23] MEDS ORDERED: ONDANSETRON *ODT* 4 MG TABLET SL PRN (14:15)
[2024-10-23] MEDS ORDERED: P-EPHED 60MG/TRIPROLIDI 2.5MG TABLET PO PRN (14:15)
[2024-10-23] MEDS: cloNIDine HCL 0.1 MG TABLET PO PRN (14:52)
[2024-10-23] MEDS: methaDONE HCL 10 MG TABLET (FOR DETOX USE ONLY) PO ONE (15:14)
[2024-10-23] MEDS ORDERED: methaDONE HCL 10 MG TABLET (FOR DETOX USE ONLY) PO ONE (17:00)
[2024-10-23] MEDS: METHOCARBAMOL 500 MG TABLET PO PRN (22:33)
[2024-10-23] MEDS: THIAMINE 100 MG TABLET PO SCH (22:33)
[2024-10-23] MEDS: MELATONIN 5 MG TABLETS PO SCH (22:34)
[2024-10-24 08:56] LABS: HEMATOCRIT 35.5 % (35.4-49); HEMOGLOBIN 11.4 GM/dL (11.7-16.9); MCH 24.9 pg (25.7-33.7); MCHC 32.2 g/dl (32.0-35.9); MEAN CELL VOLUME 77.4 fl (80-96); PLATELET COUNT 358 10^3/uL (134-434); RBC 4.59 M/mm3 (4.00-5.60); RDW 19.5 % (11.9-15.9); WHITE BLOOD COUNT 6.7 K/mm3 (4.0-10.0)
[2024-10-24 09:01] LABS: POTASSIUM 4.6 mmol/L (3.5-5.1)
[2024-10-24 09:04] LABS: ALBUMIN 3.2 g/dl (3.4-5.0); BLOOD UREA NITROGEN 12.6 mg/dL (7-18); CALCIUM 9.1 mg/dL (8.5-10.1)
[2024-10-24 09:08] LABS: CREATININE 0.5 mg/dL (0.55-1.3)
[2024-10-24 09:09] LABS: BILIRUBIN,TOTAL 0.4 mg/dL (0.2-1); TOT PROT 6.3 g/dl (6.4-8.2)
[2024-10-24] MEDS: PRENATAL VITAMINS W/ FOLIC ACID TABLET (FP) PO SCH (09:10)
[2024-10-24] MEDS: amLODIPine BESYLATE 5 MG TABLET (FP) PO SCH (11:38)
[2024-10-24] MEDS: FLU VACCINE (FLULAVAL) PF 45 MCG/0.5 ML SYRINGE 2024-2025 IM ONE (11:38)
[2024-10-25] MEDS: methaDONE HCL 10 MG TABLET (FOR DETOX USE ONLY) PO ONE (10:00)
[2024-10-26] MEDS: amLODIPine BESYLATE 10 MG TABLET (FP) PO SCH (10:16)
[2024-10-27] MEDS: methaDONE HCL 10 MG TABLET (FOR DETOX USE ONLY) PO ONE (09:26)
[2024-10-28 08:50] VITALS: BP 146/73; PULSE 74; RESP 16; TEMP 98.4
== END 2024-10-28 09:39 | disposition other institution (70) | DRG 773 ==
LOC: YASAS 13:24 → Y6N 14:38
PROVIDERS: ADMIT Allergy & Immunology; ATTEND Allergy & Immunology
PROC: HZ2ZZZZ Detoxification Services for Substance Abuse Treatment (ICD-10-PCS; principal; 2024-10-23)
DX: F11.23 Opioid dependence with withdrawal (principal); F14.20 Cocaine dependence, uncomplicated; F16.10 Hallucinogen abuse, uncomplicated; F12.20 Cannabis dependence, uncomplicated; F17.210 Nicotine dependence, cigarettes, uncomplicated; F19.24 Other psychoactive substance dependence with psychoactive substance-induced mood disorder; I10 Essential (primary) hypertension; R26.89 Other abnormalities of gait and mobility
CPT/HCPCS: 36415; 80053; 80305; 85027; 86780; 90656; 93005; 93010; G0008